=== PATIENT | male | born 1965 | race Caucasian/White ===

== ENCOUNTER 2024-01-19 10:01 | Emergency (ER) | payer BC | END 2024-01-19 11:04 | disposition home or self-care (01) | LOC: CSHERS 10:01 | DX: S93.402A Sprain of unspecified ligament of left ankle, initial encounter (principal); I10 Essential (primary) hypertension; I25.2 Old myocardial infarction; X50.1XXA Overexertion from prolonged static or awkward postures, initial encounter; Y93.75 Activity, martial arts | CPT/HCPCS: 99283 ==